=== PATIENT | female | born 1985 | race Caucasian/White ===

== ENCOUNTER 2017-01-21 12:24 | Outpatient (CLI) | payer MEDICAID ==
--- NOTE | 2017-01-21 17:29 | ULT ---
PELVIC ULTRASOUND WITH DOPPLER (Transabdominal, transvaginal, linton scale, color flow and spectral doppler) 01/21/17 HISTORY: Left lower quadrant pain after cycle on 01/05/17. The uterus measures 10.2 x 4.5 x 5 cm. No uterine mass is seen. The endometrium measures 18 mm in th ickness (normal during secretory phase in premenopausal females is up to 16 mm). There is fluid in t he endometrial cavity. The right ovary measures 5 x 1.6 x 4 cm and the left ovary measures 2.8 x 2.7 x 2.5 cm. Flow is demo nstrated to both ovaries. There is a 3.8 x 2 x 1.7 cm solid appearing mass arising from the left ova ry. This is separate from the 2.3 x 1.6 x 1.4 cm cyst in the left ovary. No free fluid is seen in th e cul-de-sac. IMPRESSION: 1. Thickened endometrium with fluid in the endometrial cavity. 2. 3.8 x 2.0 x 1.7 cm solid mass in the left ovary. Gynecologic consultation is recommended. POS: ADAM
== END 2017-01-21 12:25 | disposition home or self-care (01) ==
LOC: NAV ULT 12:24
PROVIDERS: ATTEND Nurse Practitioner Family
DX: R10.2 Pelvic and perineal pain (principal); N83.8 Other noninflammatory disorders of ovary, fallopian tube and broad ligament; R93.8 Abnormal findings on diagnostic imaging of other specified body structures
CPT/HCPCS: 76856